=== PATIENT | female | born 1995 | race Caucasian/White ===

== ENCOUNTER 2017-03-29 01:33 | Emergency (ER) | payer BC ==
[2017-03-29] MEDS ORDERED: LORazepam 1 MG Tab PO ONE (01:46)
--- NOTE | 2017-03-30 00:50 | ER ---
DATE SEEN: 03/29/2017 TIME SEEN: 0140 hours. CHIEF COMPLAINT: Difficulty breathing. HISTORY OF PRESENT ILLNESS: A 21-year-old female complaining of feeling of difficulty breathing, trembling, and anxiety. Symptoms started about 45 minutes ago on and off. Nothing seems to help it and nothing has caused it. REVIEW OF SYSTEMS: Denies any fever, chills, cough, sore throat or headache. SOCIAL HISTORY: Does not use drugs. Does not smoke. PHYSICAL EXAMINATION: GENERAL: Not in any particular medical distress. VITAL SIGNS: Blood pressure is normal. Pulse is 89. ENT: Negative. NECK: Supple. Trachea is midline. No thyromegaly. CHEST: Clear. CARDIOVASCULAR: Normal. MENTAL STATUS: Very anxious, tearful at times, but answers questions well and has good eye contact. IMPRESSION: Anxiety attack. PLAN: Lorazepam 1 mg orally, and then I sent her home on Vistaril to use 50 mg t.i.d. p.r.n. She is to see her physician later today. /[id number] SOPHIA/KATHLEEN
== END 2017-03-29 01:55 | disposition home or self-care (01) ==
LOC: FB.ED 01:33
DX: F41.9 Anxiety disorder, unspecified (principal)
CPT/HCPCS: 99283; A9270

== ENCOUNTER 2018-04-15 22:04 | Emergency (ER) | payer BC ==
[2018-04-15] MEDS ORDERED: Ondansetron 8 MG Tab.DIS PO ONE (22:23)
[2018-04-15] MEDS ORDERED: Sodium Chloride 0.9% 1,000 ML IV ONE (22:59)
[2018-04-15] MEDS ORDERED: Metoclopramide 10 MG/2 ML SDV IVPUSH ONE (23:00)
--- NOTE | 2018-04-15 23:02 | EDM.PDOC ---
ED HPI GENERAL MEDICAL PROBLEM - General Chief Complaint: Gastrointestinal Problem Stated Complaint: VOMITING Time Seen by Provider: 04/15/18 22:10 Source of Information: Reports: Patient, Family History Limitations: Reports: No Limitations - History of Present Illness INITIAL COMMENTS - FREE TEXT/NARRATIVE: 22 y.o.w.elaina came to the ed with her friend due to N/V/D in the past several hours. No blood is stool or vomit. No dizziness. No C/P Denies . Noother acute medical issues. BP 113/63 RR 18 Pulse ox 99% on RA Temp 36.8 Pulse 98 Onset Date: 04/15/18 Onset Time: 08:00 Duration: Hour(s):, Getting Worse, Intermittent Location: Reports: Abdomen Severity: Moderate Improves with: Reports: Medication Worsens with: Reports: None Context: Reports: Sick Contact Associated Symptoms: Reports: Nausea/Vomiting abdomen Pain Score (Numeric/FACES): 6 - Related Data Allergies Allergy/AdvReac Type Severity Reaction Status Date / Time No Known Allergies Allergy Verified 04/15/18 22:22 Home Meds: Home Meds Ondansetron [Zofran ODT] 4 mg PO Q6H PRN #16 tab.dis 04/16/18 [Rx] Past Medical History - Past Health History Medical/Surgical History: Denies Medical/Surgical History Social & Family History - Tobacco Use Smoking Status *Q: Never Smoker - Caffeine Use Caffeine Use: Reports: Energy Drinks - Recreational Drug Use Recreational Drug Use: No ED ROS GENERAL - Review of Systems Review Of Systems: See Below Constitutional: Reports: No Symptoms HEENT: Reports: No Symptoms Respiratory: Reports: No Symptoms Cardiovascular: Reports: No Symptoms Endocrine: Reports: No Symptoms GI/Abdominal: Reports: Diarrhea, Nausea, Vomiting : Reports: No Symptoms Musculoskeletal: Reports: No Symptoms Skin: Reports: No Symptoms Neurological: Reports: No Symptoms Psychiatric: Reports: No Symptoms Hematologic/Lymphatic: Reports: No Symptoms Immunologic: Reports: No Symptoms ED EXAM, GI/ABD - Physical Exam Exam: See Below Exam Limited By: No Limitations General Appearance: Alert, WD/WN, Mild Distress Eyes: Bilateral: Normal Appearance Ears: Normal External Exam Nose: Normal Inspection Throat/Mouth: Normal Lips, Normal Voice, No Airway Compromise, Other (dry mucosal membrane) Head: Atraumatic, Normocephalic Neck: Normal Inspection, Supple, Non-Tender Respiratory/Chest: No Respiratory Distress, Lungs Clear, Normal Breath Sounds, No Accessory Muscle Use, Chest Non-Tender Cardiovascular: Normal Peripheral Pulses, Regular Rate, Rhythm, No Edema, No Gallop, No Murmur, No Rub GI/Abdominal Exam: Normal Bowel Sounds, Soft, Non-Tender, No Organomegaly, No Abnormal Bruit, No Mass, Pelvis Stable (Female) Exam: Deferred Rectal (Female) Exam: Deferred Back Exam: Normal Inspection, Full Range of Motion Extremities: Normal Inspection, Normal Range of Motion, Non-Tender, No Pedal Edema, Normal Capillary Refill Neurological: Alert, Oriented, CN II-XII Intact, Normal Cognition, Normal Gait Psychiatric: Normal Affect, Normal Mood Skin Exam: Warm, Dry, Intact, Normal Color, No Rash Lymphatic: No Adenopathy Course - Vital Signs Text/Narrative:: 22 y.o.w.f came to the ed with her friend due to N/V/D in the past several hours. No blood is stool or vomit. No dizziness. No C/P Denies . Noother acute medical issues. BP 113/63 RR 18 Pulse ox 99% on RA Temp 36.8 Pulse 98 PE: WNWD W F with N/V/D no dysuria Labs: CBC, BMP and UA neg except Leucocytesterase was small Impression: Gastroenteritis, dehydration Tx: NS, Kassidy Villagomez Reexam: Nausea subsided, pt was able to dring water, no BM in the ED Plan: D/C with instructions Last Recorded V/S: Last Vital Signs Temp 36.4 C 04/16/18 00:25 Pulse 95 04/16/18 00:25 Resp 17 04/16/18 00:25 BP 106/66 04/16/18 00:25 Pulse Ox 97 04/16/18 00:25 - Orders/Labs/Meds Orders: Active Orders 24 hr Category Date Time Status Peripheral IV Insertion Adult [OM.PC] Routine Oth 04/15/18 23:00 Ordered Labs: Laboratory Tests 04/15/18 04/15/18 04/15/18 Range/Units 22:16 22:23 23:08 WBC 10.2 (4.5-12.0) X10-3/uL RBC 5.07 (3.23-5.20) x10(6)uL Hgb 16.3 H (11.5-15.5) g/dL Hct 48.0 (30.0-51.3) % MCV 94.7 (80-96) fL MCH 32.1 (27.7-33.6) pg MCHC 33.9 (32.2-35.4) g/dL RDW 11.6 (11.5-15.5) % Plt Count 253 (125-369) X10(3)uL MPV 8.5 (7.4-10.4) fL Add Manual Diff Yes Neutrophils % (Manual) 91 H (46-82) % Band Neutrophils % 1 (0-6) % Lymphocytes % (Manual) 4 L (13-37) % Monocytes % (Manual) 1 L (4-12) % Eosinophils % (Manual) 2 (0-5) % Basophils % (Manual) 1 (0-2) % Sodium (135-145) mmol/L Potassium (3.5-5.3) mmol/L Chloride (100-110) mmol/L Carbon Dioxide (21-32) mmol/L BUN (7-18) mg/dL Creatinine (0.55-1.02) mg/dL Est Cr Clr Drug Dosing mL/min Estimated GFR (MDRD) (>60) BUN/Creatinine Ratio (9-20) Glucose (80-116) mg/dL Calcium (8.6-10.2) mg/dL Urine Color Yellow (YELLOW) Urine Appearance Slightly cloudy (CLEAR) Urine pH 5.0 (5.0-6.5) Ur Specific [place] 1.020 (1.010-1.025) Urine Protein Negative (NEGATIVE) mg/dL Urine Glucose (UA) Normal (NEGATIVE) mg/dL Urine Ketones 50 H (NEGATIVE) mg/dL Urine Occult Blood Negative (NEGATIVE) Urine Nitrite Negative (NEGATIVE) Urine Bilirubin Small H (NEGATIVE) Urine Urobilinogen Normal (NEGATIVE) mg/dL Ur Leukocyte Esterase Small H (NEGATIVE) Urine RBC 0-5 (0) Urine WBC 0-5 (0) Ur Squamous Epith Cells Few H (NS,R,O) Amorphous Sediment Few Urine Bacteria Few H (NS) Urine Mucus Moderate H (NS) Urine HCG, Qual Negative (NEGATIVE) 04/15/18 Range/Units 23:08 WBC (4.5-12.0) X10-3/uL RBC (3.23-5.20) x10(6)uL Hgb (11.5-15.5) g/dL Hct (30.0-51.3) % MCV (80-96) fL MCH (27.7-33.6) pg MCHC (32.2-35.4) g/dL RDW (11.5-15.5) % Plt Count (125-369) X10(3)uL MPV (7.4-10.4) fL Add Manual Diff Neutrophils % (Manual) (46-82) % Band Neutrophils % (0-6) % Lymphocytes % (Manual) (13-37) % Monocytes % (Manual) (4-12) % Eosinophils % (Manual) (0-5) % Basophils % (Manual) (0-2) % Sodium 141 (135-145) mmol/L Potassium 3.8 (3.5-5.3) mmol/L Chloride 105 (100-110) mmol/L Carbon Dioxide 26 (21-32) mmol/L BUN 17 (7-18) mg/dL Creatinine 0.9 (0.55-1.02) mg/dL Est Cr Clr Drug Dosing 88.23 mL/min Estimated GFR (MDRD) > 60 (>60) BUN/Creatinine Ratio 18.9 (9-20) Glucose 112 (80-116) mg/dL Calcium 8.9 (8.6-10.2) mg/dL Urine Color (YELLOW) Urine Appearance (CLEAR) Urine pH (5.0-6.5) Ur Specific [place] (1.010-1.025) Urine Protein (NEGATIVE) mg/dL Urine Glucose (UA) (NEGATIVE) mg/dL Urine Ketones (NEGATIVE) mg/dL Urine Occult Blood (NEGATIVE) Urine Nitrite (NEGATIVE) Urine Bilirubin (NEGATIVE) Urine Urobilinogen (NEGATIVE) mg/dL Ur Leukocyte Esterase (NEGATIVE) Urine RBC (0) Urine WBC (0) Ur Squamous Epith Cells (NS,R,O) Amorphous Sediment Urine Bacteria (NS) Urine Mucus (NS) Urine HCG, Qual (NEGATIVE) Meds: Medications Discontinued Medications Generic Name Dose Route Start Last Admin Trade Name Freq PRN Reason Stop Dose Admin Sodium Chloride 1,000 mls @ 999 mls/hr 04/15/18 22:59 04/15/18 23:10 Normal Saline IV 04/15/18 23:59 999 mls/hr .BOLUS ONE Administration Metoclopramide HCl 10 mg 04/15/18 23:00 04/15/18 23:10 Reglan IVPUSH 04/15/18 23:01 10 mg ONETIME ONE Administration Ondansetron HCl 8 mg 04/15/18 22:23 04/15/18 22:28 Zofran Odt PO 04/15/18 22:24 8 mg ONETIME ONE Administration Sodium Chloride 10 ml 04/15/18 23:15 04/15/18 23:10 Saline Flush FLUSH 10 ml ASDIRECTED PRN Administration Keep Vein Open Departure - Departure Time of Disposition: 00:12 Disposition: Home, Self-Care 01 Condition: Good Clinical Impression: Gastroenteritis - Discharge Information Prescriptions: Ondansetron [Zofran ODT] 4 mg PO Q6H PRN #16 tab.dis PRN Reason: Nausea Instructions: Viral Gastroenteritis, Adult, [id number] Referrals: Wicho Gray MD [Primary Care Provider] - Forms: ED Department Discharge Additional Instructions: Please advance diet as tolerated, please increase water intake, please f/u, come back if your symptoms get worse acutely - My Orders Last 24 Hours: My Active Orders 04/15/18 23:00 Peripheral IV Insertion Adult [OM.PC] Routine - Assessment/Plan Last 24 Hours: My Active Orders 04/15/18 23:00 Peripheral IV Insertion Adult [OM.PC] Routine
[2018-04-15] MEDS ORDERED: Sodium Chloride 0.9% 10 ML Syringe FLUSH PRN (23:15)
== END 2018-04-16 00:26 | disposition home or self-care (01) ==
LOC: FB.ED 22:04
DX: K52.9 Noninfective gastroenteritis and colitis, unspecified (principal)
CPT/HCPCS: 36415; 80048; 81001; 81025; 85025; 96361; 96374; 99284; A9270; J2765; J7030

== ENCOUNTER 2019-12-23 21:07 | Emergency (ER) | payer BC, OTHER ==
[2019-12-23] MEDS ORDERED: LORazepam 2 MG/ML SDV IM ONE (21:30)
--- NOTE | 2019-12-23 21:37 | EDM.PDOCBH ---
ED HPI GENERAL MEDICAL PROBLEM - General Chief Complaint: Behavioral/Psych Stated Complaint: ANXIETY Time Seen by Provider: 12/23/19 21:20 Source of Information: Reports: Patient History Limitations: Reports: No Limitations - History of Present Illness INITIAL COMMENTS - FREE TEXT/NARRATIVE: Liane comes into [facility] ED with sxs of restlessness, tension, palpitations, sweats, tremors, and anxiety. Sxs developed spontaneously about 15 minutes after leaving brother's house in [place], [place] this evening. She was driving alone, and noticed sxs that became progressive worisome. She called brother who met her on the road and drove her to the ED. Liane has had similar sxs in the past, past ED visit about 3 years ago. She did see a therapist a couple of times, but did not continue treatment. She reports no other health concerns, relationship issues, or . - Related Data Allergies Allergy/AdvReac Type Severity Reaction Status Date / Time No Known Allergies Allergy Verified 04/15/18 22:22 Home Meds: Home Meds NK [No Known Home Meds] 12/23/19 [History] Past Medical History - Past Health History Medical/Surgical History: Denies Medical/Surgical History Psychiatric History: Reports: Anxiety Social & Family History - Tobacco Use Smoking Status *Q: Current Every Day Smoker Years of Tobacco use: 4 Packs/Tins Daily: 0.5 - Caffeine Use Caffeine Use: Reports: Energy Drinks ED ROS GENERAL - Review of Systems Review Of Systems: Comprehensive ROS is negative, except as noted in HPI. ED EXAM, BEHAVIORAL HEALTH - Physical Exam Exam: See Below Exam Limited By: No Limitations General Appearance: Alert, WD/WN, Anxious Eye Exam: Bilateral Eye: EOMI, Normal Inspection, PERRL Ears: Normal External Exam Nose: Normal Inspection Throat/Mouth: Normal Inspection, Normal Oropharynx Head: Normocephalic Neck: Normal Inspection, Supple, Non-Tender Respiratory/Chest: Lungs Clear, Normal Breath Sounds Cardiovascular: Regular Rate, Rhythm, No Murmur Back Exam: Normal Inspection Extremities: Normal Inspection Neurological: Alert, CN II-XII Intact, Normal Cognition, Normal Gait, No Motor/Sensory Deficits Psychiatric: Alert, Normal Cognition, Oriented, Restless, Other (anxious) Skin Exam: Warm, Dry, Intact, Normal color, No rash COURSE, BEHAVIORAL HEALTH COMP - Course Vital Signs: Last Vital Signs Temp 36.8 C 12/23/19 21:12 Pulse 108 H 12/23/19 21:12 Resp 18 12/23/19 21:12 BP 133/88 12/23/19 21:12 Pulse Ox 100 12/23/19 21:12 Orders, Labs, Meds: Medications Discontinued Medications Generic Name Dose Route Start Last Admin Trade Name Edd PRN Reason Stop Dose Admin Lorazepam 1 mg 12/23/19 21:30 12/23/19 21:36 Ativan IM 12/23/19 21:31 1 mg ONETIME ONE Administration Departure - Departure Time of Disposition: 22:12 Disposition: Home, Self-Care 01 Condition: Good Clinical Impression: Anxiety attack - Discharge Information *PRESCRIPTION DRUG MONITORING PROGRAM REVIEWED*: Not Applicable *COPY OF PRESCRIPTION DRUG MONITORING REPORT IN PATIENT SOFIA: Not Applicable Instructions: Lorazepam tablets, Living With Anxiety Referrals: PCP,None [Primary Care Provider] - Forms: ED Department Discharge Additional Instructions: Follow up with your primary physician this week to establish a therapist. Read discharge education regarding anxiety. Sepsis Event Note (ED) - Evaluation Sepsis Screening Result: No Definite Risk - Focused Exam Vital Signs: Vital Signs Temp Pulse Resp BP Pulse Ox 12/23/19 21:12 36.8 C 108 H 18 133/88 100 - Problem List & Annotations (1) Anxiety attack SNOMED Code(s): 080777840 Code(s): F41.0 - PANIC DISORDER [EPISODIC PAROXYSMAL ANXIETY] Status: Acute Current Visit: Yes Annotation/Comment:: Anxiety disorder with recent attack, currently in remission following Ativan 1 mg IM. I discussed the natural hx of this disorder, and the utility of seeking professional psychological help to develop cognitive strategies and medical interventions. - Problem List Review Problem List Initiated/Reviewed/Updated: Yes - Assessment/Plan Plan: Followi up with PCP regarding referral to mental health professional.
== END 2019-12-23 22:30 | disposition home or self-care (01) ==
LOC: FB.ED 21:07
DX: F41.1 Generalized anxiety disorder (principal); F17.210 Nicotine dependence, cigarettes, uncomplicated
CPT/HCPCS: 96372; 99283; J2060